=== PATIENT | female | born 1985 | race Caucasian/White ===

== ENCOUNTER 2016-05-28 10:42 | Emergency (ER) | payer MEDICAID ==
[~2016-05-28] VITALS: Ht 160 cm; Wt 62.1 kg
[2016-05-28 10:47] VITALS: BP 144/97
--- NOTE | 2016-05-28 10:54 | NUR ---
PT AMBULATED TO BED 5.
--- NOTE | 2016-05-28 11:03 | NUR ---
APATIENT PRESENTS TO ED WITH RIGHT FLANK PAIN X1 MONTH . DENIES N/V/D; SKIN IS PINK/WARM/DRY; AAOX4 WITH EVEN AND STEADY GAIT; LUNGS CLEAR BL; HR EVEN AND REGULAR; PT DENIES ANY FEVER, CP, SOB, OR COUGH AT THIS TIME; PATIENT STATES CONSTANT SHARP PAIN OF 7/10 AT THIS TIME; VSS; PATIENT POSITIONED FOR COMFORT; HOB ELEVATED; BEDRAILS UP X2; BED DOWN. ER MD MADE AWARE OF PT STATUS.
[2016-05-28] MEDS ORDERED: KETOROLAC 60 MG/2 ML VIAL IM ONE (11:20)
--- NOTE | 2016-05-28 11:50 | NUR ---
Patient being evaluated by physician at bedside.
--- NOTE | 2016-05-28 12:14 | NUR ---
Patient discharged with v/s stable. Written and verbal after care instructions given and explained. Patient alert, oriented and verbalized understanding of instructions. Ambulatory with steady gait. All questions addressed prior to discharge. ID band removed. Patient advised to follow up with PMD. Rx of MOTRIN AND NORCO given. Patient educated on indication of medication including possible reaction and side effects. Opportunity to ask questions provided and answered.
[2016-05-28 12:15] VITALS: BP 132/88
== END 2016-05-28 12:14 | disposition home or self-care (01) ==
LOC: MED 10:42
DX: R10.9 Unspecified abdominal pain (principal); R50.9 Fever, unspecified; R11.0 Nausea
CPT/HCPCS: 81002; 81025; 96372; 99283; J1885

== ENCOUNTER 2017-11-03 09:55 | Emergency (ER) | payer MEDICAID ==
[~2017-11-03] VITALS: Ht 160 cm; Wt 61.2 kg
--- NOTE | 2017-11-03 09:58 | NUR ---
PATIENT AMBULATED TO BED 7.
[2017-11-03 10:00] VITALS: BP 119/79
--- NOTE | 2017-11-03 10:01 | NUR ---
EKG AT BEDSIDE.
--- NOTE | 2017-11-03 10:05 | NUR ---
32 /F BIB SELF C/O LEFT SIDED CHEST PAIN RADIATING TO L BACK X 4 DAYS, AWAKE AND ALERT NO HX OF CARDIAC. NEVER SEENT FOR THIS BEFORE. DENIES N/V/D; SKIN IS PINK/WARM/DRY; AAOX4 WITH EVEN AND STEADY GAIT; LUNGS CLEAR BL. PT DENIES ANY FEVER, CP, SOB, OR COUGH AT THIS TIME; PATIENT STATES PAIN OF 5/10 AT THIS TIME. PATIENT POSITIONED FOR COMFORT; HOB ELEVATED; BEDRAILS UP X2; BED DOWN. ER MD MADE AWARE OF PT STATUS.
[2017-11-03] MEDS ORDERED: VITB12 PO (10:11)
[2017-11-03] MEDS ORDERED: LAMO100T PO (10:11)
[2017-11-03] MEDS ORDERED: ZIPR20CA1 PO (10:11)
[2017-11-03] MEDS ORDERED: [UNRECOGNIZED DRUG - CODE] PO (10:11)
--- NOTE | 2017-11-03 10:36 | NUR ---
Patient being evaluated by DR MARINELLI at bedside.
[2017-11-03] MEDS ORDERED: LIDOCAINE VISCOUS 2% 20 ML UDC PO ONE (10:40)
[2017-11-03] MEDS ORDERED: FAMOTIDINE 20 MG TAB PO ONE (10:40)
[2017-11-03] MEDS ORDERED: ALUMINUM HYD/MAG/SIMETHICONE 30 ML UDC PO ONE (10:40)
[2017-11-03] MEDS ORDERED: ONDANSETRON 4 MG ODT PO ONE (10:45)
--- NOTE | 2017-11-03 10:49 | NUR ---
X RAY AT BEDSIDE.
[2017-11-03 11:50] VITALS: BP 118/79
== END 2017-11-03 11:50 | disposition home or self-care (01) ==
LOC: MED 09:55
DX: K20.9 Esophagitis, unspecified (principal); F43.9 Reaction to severe stress, unspecified
CPT/HCPCS: 71045; 93005; 99284; Q0092; S0119

== ENCOUNTER 2021-04-04 10:53 | Emergency (ER) | payer MEDICAID ==
[~2021-04-04] VITALS: Ht 157.5 cm; Wt 58.5 kg
[~2021-04-04 10:53] MED LIST: LAMO100T PO; PROP60CA PO; VITB12 PO; ZIPR20CA1 PO
--- NOTE | 2021-04-04 11:04 | NUR ---
Patient ambulated with steady gait to bed 9.
[2021-04-04 11:09] VITALS: BP 115/78
--- NOTE | 2021-04-04 11:36 | NUR ---
35/F BIB SELF WITH C/O CHEST TIGHTNESS X1 WEEK. PATIENT DENIES INJURY OR TRAUMA, STATES PAIN WORSENED YESTERDAY AND WORSENS WITH MOVEMENT. PATIENT REPORTS 6/10 TIGHTNESS PAIN THAT IS NON RADIATING, PATIENT DENIES SOB, N/V/D, NUMBNESS, TINGLING OR HEADACHE.
[2021-04-04] MEDS: ACETAMINOPHEN 325 MG TAB PO ONE (12:18)
--- NOTE | 2021-04-04 12:35 | NUR ---
RADIOLOGY AT BEDSIDE
--- NOTE | 2021-04-04 12:37 | NUR ---
[employer]ISION[employer]ISING MA[employer]GER AT BEDSIDE
[2021-04-04 13:24] VITALS: BP 117/72
== END 2021-04-04 13:25 | disposition home or self-care (01) ==
LOC: MED 10:53
DX: R07.89 Other chest pain (principal); F20.9 Schizophrenia, unspecified; Z79.899 Other long term (current) drug therapy
CPT/HCPCS: 71045; 93005; 99283; Q0092

== ENCOUNTER 2021-09-09 09:38 | Emergency (ER) | payer MEDICAID ==
[~2021-09-09] VITALS: Ht 157.5 cm; Wt 53.5 kg
[2021-09-09 09:44] VITALS: BP 108/75
[2021-09-09] MEDS ORDERED: PROCHLORPERAZINE 10 MG/2 ML VIAL IM ONE (10:05)
[2021-09-09] MEDS ORDERED: KETOROLAC 60 MG/2 ML VIAL IM ONE (10:05)
--- NOTE | 2021-09-09 10:15 | NUR ---
36/F PRESENTS TO ED WITH C/O MIGRAINE AND NAUSEA X3 DAYS. PATIENT STATES HX OF MIGRAINES BUT REPORTS SHE IS USUALLY ABLE TO FIND RELIEF WITH USE OF EXCEDRIN AND TYLENOL. PATIENT REPORTS PHOTOPHOBIA, DENIES V/D, VISION CHANGES, SOB, CP OR URINARY SYMPTOMS. REPORTS TAKING EXCEDRIN AND TYLENOL WITH NO RELIEF.
[2021-09-09] MEDS ORDERED: TRAM50TA1 PO ×2 (10:28→10:47)
[2021-09-09 10:50] VITALS: BP 108/75
--- NOTE | 2021-09-09 10:50 | NUR ---
Patient discharged with v/s stable. Written and verbal after care instructions ABOUT MIGRAINE HEADACHES given and explained. Patient alert, oriented and verbalized understanding of instructions. Ambulatory with steady gait. All questions addressed prior to discharge. ID band removed. Patient advised to follow up with PMD. Rx of NAPROSYN given. Patient educated on indication of medication including possible reaction and side effects. Opportunity to ask questions provided and answered.
[2021-09-09] MEDS ORDERED: NAPR-1704 PO (10:52)
== END 2021-09-09 10:50 | disposition home or self-care (01) ==
LOC: MED 09:38
DX: G43.909 Migraine, unspecified, not intractable, without status migrainosus (principal); G44.89 Other headache syndrome
CPT/HCPCS: 81025; 96372; 99283; J1885